=== PATIENT | female | born 1965 | race Caucasian/White ===

== ENCOUNTER → 2024-10-12 | Outpatient (CLI) | payer MEDICAID, SELFPAY ==
--- NOTE | 2024-10-12 16:00 | XR_ITS ---
Examination: CT thoracic spine, without contrast. 2-D sagittal reconstructions. 2-D coronal reconstructions. 3-D reconstructions. Date and time of exam:October 12, 2024 1630 hours INDICATIONS: Patient fell November 2021 with L1 fracture, persistent back pain, subacute severe compression fracture L1 vertebral body, reduction in height 70% lumbar spine July 10, 2023 CTDI: vol (mGy):24.9 DLP: (mGycm):759 Technique: Multiple 1.25 mm axial sections of the thoracic spine have been obtained. 2-D sagittal and coronal reconstructions have been obtained. 3-D reconstructions have been obtained. Low dose protocols were performed. One or more of the following dose reduction techniques were used; automated exposure control, adjustment of the mA and/or KV according to patient size, use of iterative reconstruction technique. Findings: Prominent osteopenia No acute thoracic fracture Mild thoracic spondylosis Thoracic pedicles, laminae, transverse and posterior spinous processes intact IMPRESSION: No acute thoracic fracture
--- NOTE | 2024-10-12 16:30 | XR_ITS ---
Examination: CT lumbar spine, without contrast. 2-D sagittal reconstructions. 2-D coronal reconstructions. 3-D reconstructions. Date and time of exam:October 12, 2024 at 1630 hours Comparison MRI lumbar spine 06/21/2024 INDICATIONS: Patient fell November 2021 with injury to lower back, compression fracture L1 vertebral body CTDI: vol (mGy):24.6 DLP: (mGycm):692 Technique: Multiple 1.25 mm axial sections of the lumbar spine without intravenous contrast have been obtained. 2-D sagittal and coronal reconstructions have been obtained. 3-D reconstructions have been obtained. Low dose protocols were performed. One or more of the following dose reduction techniques were used; automated exposure control, adjustment of the mA and/or KV according to patient size, use of iterative reconstruction technique. Findings: Stable moderately severe compression fracture L1 vertebral body, reduction in height 70% Retropulsion of the posterior superior margin of this vertebral body 5 mm No acute lumbar fracture No spondylolisthesis L5-S1 4 mm central lumbar disc bulge IMPRESSION: Stable compression fracture L1 vertebral body compared to MRI lumbar spine study 06/21/2024 Retropulsion posterior superior margin of this vertebral body 5 mm
== END | disposition home or self-care (01) ==
LOC: CCTX 16:15
PROVIDERS: PCP Physician Assistant; Referring Provider Physician Assistant; Visit Provider Physician Assistant
DX: M54.6 Pain in thoracic spine (principal); S32.019G Unspecified fracture of first lumbar vertebra, subsequent encounter for fracture with delayed healing; W19.XXXD Unspecified fall, subsequent encounter; S32.000S Wedge compression fracture of unspecified lumbar vertebra, sequela; W19.XXXS Unspecified fall, sequela
CPT/HCPCS: 72128; 72131